=== PATIENT | male | born 1955 | race Caucasian/White ===

== ENCOUNTER 2017-05-06 19:57 | Emergency (ER) | payer OTHER ==
[~2017-05-06] VITALS: Ht 182.9 cm; Wt 108.9 kg
[2017-05-06 19:57] VITALS: BP_SYST 142
[2017-05-06 21:45] VITALS: BP_SYST 140
[2017-05-06] MEDS ORDERED: IBUPROFEN 600 MG TABLET PO ONE (21:45)
== END 2017-05-06 21:45 | disposition home or self-care (01) ==
LOC: SED 19:57
DX: J11.1 Influenza due to unidentified influenza virus with other respiratory manifestations (principal); I10 Essential (primary) hypertension; E11.9 Type 2 diabetes mellitus without complications; Z91.041 Radiographic dye allergy status
CPT/HCPCS: 71045; 82962; 99283